=== PATIENT | male | born 1960 | race Caucasian/White ===

== ENCOUNTER 2021-01-01 12:39 | Emergency (ER) | payer OTHER ==
[~2021-01-01] VITALS: Ht 175.3 cm; Wt 100.0 kg
[2021-01-01] MEDS ORDERED: ONDANSETRON 2MG/ML, 2ML ONE ×2 (13:11→14:30)
[2021-01-01] MEDS ORDERED: SODIUM CHLORIDE FLUSH 10ML SYR IVF ONE (13:30)
[2021-01-01] MEDS ORDERED: ONDANSETRON 2MG/ML, 2ML IVPush ONE ×2 (13:30→14:30)
[2021-01-01] MEDS ORDERED: SODIUM CHLORIDE 0.9% 1,000ML IVBOLUS ONE ×2 (13:30→14:30)
[2021-01-01 13:41] LABS: BASOPHILS % (AUTO) 1 % (0-1); EOSINOPHILS % (AUTO) 0 % (1-7); LYMPHOCYTES % (AUTO) 13 % (22-44); MEAN CORPUSCULAR HEMOGLOBIN 31.6 pg (27.5-34.5); MEAN CORPUSCULAR HGB CONC 33.9 g/dL (33.2-36.2); MEAN PLATELET VOLUME 7.4 fL (7.4-10.4); MONOCYTES % (AUTO) 6 % (2-9); NEUTROPHILS % (AUTO) 80 % (42-75); PLATELET COUNT 270 x10^3/uL (130-400); RED BLOOD COUNT 4.74 x10^6/uL (4.38-5.82); RED CELL DISTRIBUTION WIDTH 14.9 % (9.4-14.8)
[2021-01-01 13:48] LABS: MD NO
[2021-01-01 13:49] LABS: ALBUMIN 3.7 g/dL (3.4-5.0); ANION GAP 13 mmol/L (5-15); CALCIUM 8.4 mg/dL (8.5-10.1); CHLORIDE 110 mmol/L (98-107)
[2021-01-01 13:57] LABS: ALANINE AMINOTRANSFERASE 24 U/L (12-78); ALKALINE PHOSPHATASE 62 U/L (45-117); BILIRUBIN,TOTAL 0.3 mg/dL (0.2-1.0); CREATININE 1.86 mg/dL (0.7-1.3); TROPONIN I < 0.015 ng/mL (0.000-0.045)
--- NOTE | 2021-01-01 14:14 | NUR ---
pt sitting upright in bed, on youth nutritional monitor, with call light in hand and bed rails up bilaterally. pt comlpaining of persistent nausea, no active vomiting noted at this time. ptwith ivf infusing well at left fa, no signs or symptoms of acute distress noted respirations even and unlabored
--- NOTE | 2021-01-01 14:51 | NUR ---
pt now oriented x4, still unable to recall events of the day. complaining of achy pain in ankles and neck. pt repositioned to facilitate greater comfort, in bed with night monitor in place and bed rails up bilaterally. call light in right hand ivf infusing well at left fa. no signs or symptoms of acute dsitress noted respirations even and unlabored pt denies need at this time.
[2021-01-01] MEDS ORDERED: HYDROcodone/APAP 5/325 TABLET ONE (15:51)
[2021-01-01] MEDS ORDERED: HYDROcodone/APAP 5/325 TABLET PO ONE (16:00)
--- NOTE | 2021-01-01 17:08 | NUR ---
md at bedside to assess. pt in bed with no signs or symptoms of acute distress noted respirations even and unlabored, noted to be satting 88% on room air. md aware, pt ordered for chest xray. pt aware and agreeable with plan of care, denies pain or discomfort at this time, states that leg pain is resolved. pt continues on library monitor.call light in hand
[2021-01-01] MEDS ORDERED: OMNIPAQUE 350 MG/ML, 100ML BOTTLE ONE (19:00)
--- NOTE | 2021-01-01 20:01 | NUR ---
TASK RN: PT RESTING ON GURNEY. NADN. PARADA.
[2021-01-01 20:12] VITALS: BP 169/104
== END 2021-01-01 20:14 | disposition home or self-care (01) ==
LOC: ED 14:17
DX: R56.9 Unspecified convulsions (principal); R55 Syncope and collapse; R00.0 Tachycardia, unspecified; R11.2 Nausea with vomiting, unspecified; I25.2 Old myocardial infarction; Z95.9 Presence of cardiac and vascular implant and graft, unspecified
CPT/HCPCS: 36415; 70450; 71045; 71275; 80053; 83605; 84484; 85025; 85379; 87040; 93005; 96361; 96374; 96375; 99285; J2405; J7030; Q9967